=== PATIENT | male | born 1970 | race Caucasian/White ===

== ENCOUNTER 2016-11-14 11:11 | Emergency (ER) | payer OTHER ==
[~2016-11-14] VITALS: Ht 180.3 cm; Wt 79.5 kg
[2016-11-14 11:16] VITALS: Ht 180.3 cm; Wt 79.5 kg
[2016-11-14] MEDS ORDERED: HYDROmorphONE 1 MG/ML SYG IV STA ×2 (11:46→13:40)
[2016-11-14] MEDS ORDERED: SOD CHLORIDE 0.9% 1,000 ML IV STA (11:46)
[2016-11-14] MEDS ORDERED: ONDANSETRON 4 MG INJ IV STA ×2 (11:46→13:40)
[2016-11-14 12:05] LABS: ADD SCAN DIFF NO
[2016-11-14 12:11] LABS: BASOPHILS % 0.3 % (0.0-2.0); EOSINOPHILS # 0.1 10^3/ul (0.0-0.5); EOSINOPHILS % 0.6 % (0.0-7.0); HEMATOCRIT 46.1 % (42.0-52.0); HEMOGLOBIN 15.8 g/dl (14.0-18.0); LYMPHOCYTES # 1.3 10^3/ul (0.8-2.9); LYMPHOCYTES % 10.9 % (15.0-51.0); MEAN CORPUSCULAR HEMOGLOBIN 32.1 pg (29.0-33.0); MEAN CORPUSCULAR HGB CONC 34.3 g/dl (32.0-37.0); MEAN CORPUSCULAR VOLUME 93.7 fl (82.0-101.0); MEAN PLATELET VOLUME 9.8 fl (7.4-10.4); MONOCYTE # 0.9 10^3/ul (0.3-0.9); MONOCYTES % 7.7 % (0.0-11.0); NEUTROPHIL # 9.2 10^3/ul (1.6-7.5); NEUTROPHILS % 80.2 % (39.0-77.0); PLATELET COUNT 243 10^3/UL (140-415); RED BLOOD COUNT 4.92 10^6/ul (4.70-6.10); RED CELL DISTRIBUTION WIDTH 11.7 % (11.5-14.5); WHITE BLOOD COUNT 11.4 10^3/ul (4.8-10.8)
[2016-11-14 12:17] LABS: ADD UMIC YES; URINE BILIRUBIN (Dip) NEGATIVE (NEGATIVE); URINE BLOOD (Dip) 2+ (NEGATIVE); URINE COLOR LT. YELLOW (YELLOW); URINE GLUCOSE (Dip) NEGATIVE (NEGATIVE); URINE KETONES (Dip) NEGATIVE (NEGATIVE); URINE LEUKOCYTE ESTERASE (Dip) NEGATIVE (NEGATIVE); URINE NITRITE (Dip) NEGATIVE (NEGATIVE); URINE TOTAL PROTEIN (Dip) 1+ (NEGATIVE); URINE UROBILINOGEN (Dip) 0.2 E.U./dL (0.1-1.0)
[2016-11-14 12:18] LABS: ALBUMIN 4.5 g/dl (3.3-4.9)
[2016-11-14 12:19] LABS: POTASSIUM 3.7 mmol/L (3.5-5.1)
[2016-11-14 12:21] LABS: ALBUMIN/GLOBULIN RATIO 1.28; BILIRUBIN,INDIRECT 0.8 mg/dl (0-1.1); BILIRUBIN,TOTAL 0.8 mg/dl (0.2-1.3); CREATININE 0.99 mg/dl (0.61-1.24)
[2016-11-14 12:22] LABS: CALCIUM 9.5 mg/dl (8.4-10.2)
--- NOTE | 2016-11-14 12:33 | RADRPT ---
PROCEDURE: CT Abdomen and pelvis without contrast. CLINICAL INDICATION: Right flank pain radiating the pelvis TECHNIQUE: CT scan of the abdomen and pelvis without contrast was performed on a multidetector hig h-resolution CT scan. . Coronal and sagittal reformatted images were obtained from the axial [facility] e images. Standard CT scan of the abdomen pelvis without contrast protocols were performed. The total exam CTDI equals 12.39 mGy and the total exam DLP equals 699.32 mGy-cm. One or more of the following dose reduction techniques were used: - Automated exposure control. - Adjustment of the mA and/or kV according to patient size. Use of iterative reconstruction technique. COMPARISON: None FINDINGS: There is either an elongated bilobed of the distal right ureteral calculus or to abutting distal rig ht ureteral calculi with an overall dimension of approximately 0.5 x 0.2 cm. There is proximal to m oderate right hydroureter and hydronephrosis. Additional punctate 1-2 mm non-obstructing right mid renal calculus. Mild right perirenal stranding and fluid. There is a punctate non-obstructing 1-2 mm left mid renal calculus. No other left renal calcified calculi or hydronephrosis. There are no intra renal masses bilaterally. The urinary bladder is contracted but otherwise unremarkable. The prostate gland is unremarkable. No abdominal or pelvic free fluid, free air, abscesses or lymphadenopathy. The liver spleen pancrea s and adrenal glands are unremarkable. The gallbladder is unremarkable and there is no evidence christ iary ductal dilation. There is fluid and air distending the stomach which is otherwise unremarkable . The small large bowel are unremarkable. The appendix is unremarkable. There is sclerotic densit ies involving the right left femoral heads likely bone islands. There are no definite osteoblastic/ osteolytic lesions or acute osseous findings. There is degenerative changes lower thoracic and lumb ar spine. Lung bases are unremarkable. IMPRESSION: 1. 0.5 x 0.2 cm distal right ureteral calculus/calculi as described above resulting in moderate rig ht obstructive uropathy. 2. Additional nonobstructing punctate 1-2 mm bilateral renal calculi. No left obstructive uropathy . 3. Negative for intra-abdominal free air, free fluid, abscesses or lymphadenopathy. RPTAT:AAJJ Kathy Galo Physician Date Time Electronically viewed and signed by Kathy Galo Physician on 11/14/2016 12:32 /
[2016-11-14 12:48] LABS: URINE RBCS 0-2 /HPF (0)
[2016-11-14 12:49] LABS: BACTERIA,URINE FEW
[2016-11-14] MEDS ORDERED: HYDR-902 PO (13:53)
[2016-11-14] MEDS ORDERED: ONDA4TAB14 PO (13:53)
--- NOTE | 2016-11-14 13:59 | ERD ---
ER Documentation Chief Complaint Date/Time DATE: 11/14/16 TIME: 13:57 Chief Complaint RT FLANK PAIN STARTING THIS MORNING, HX KIDNEY STONES HPI This a 46-year-old male with a history of multiple renal stones complains of sharp pain in the right flank radiating to the right lower quadrant onset last night and worse today with nausea vomiting 2 no hematuria no fever no dysuria no diarrhea. He states he has had similar symptoms in the past and this feels exactly the same. Patient's last attack of renal stones was October 2016 the patient has Flomax already took one this morning ROS All systems reviewed and are negative except as per history of present illness. Medications Home Meds Active Scripts Ondansetron (Ondansetron Odt) 4 Mg Tab.rapdis, 4 MG PO Q6H Y for NAUSEA AND/OR VOMITING, #14 TAB Prov:ML KANGS [place]. DO 11/14/16 Hydrocodone/Acetaminophen ([place] 10-325 Tablet) 1 Each Tablet, 1 TAB PO Q6H Y for PAIN, #20 TAB Prov:VICK KANGSTABIGAILS A. DO 11/14/16 Allergies Allergies: Coded Allergies: No Known Allergy (Unverified , 11/14/16) PMhx/Soc Medical and Surgical Hx: pt denies Surgical Hx History of Surgery: No Anesthesia Reaction: No Hx Neurological Disorder: No Hx Respiratory Disorders: No Hx Cardiac Disorders: No Hx Psychiatric Problems: No Hx Miscellaneous Medical Probl: Yes (KIDNEY STONES ) Hx Alcohol Use: Yes (OCASSIONAL) Hx Substance Use: No Hx Tobacco Use: Yes Smoking Status: Current some day smoker FmHx Family History: No coronary disease Physical Exam Vitals Vital Signs Date Time Temp Pulse Resp B/P Pulse Ox O2 Delivery O2 Flow Rate FiO2 11/14/16 13:29 78 18 140/89 99 Room Air 11/14/16 11:16 97.8 72 20 162/92 100 Physical Exam Const: Well-developed, well-nourished Head: Atraumatic, normocephalic Eyes: Normal Conjunctiva, PERRLA, EOMI, normal sclera, no nystagmus ENT: Normal External Ears, Nose and Mouth, moist mucus membranes. Neck: Full range of motion. No meningismus, no lymphadenopathy. Resp: Clear to auscultation bilaterally, no wheezing, rhonchi, rales Cardio: Regular rate and rhythm, no murmurs, S1 S2 present Abd: Soft, non tender x 4, non distended. Normal bowel sounds, no guarding or rebound, no pulsitile abdominal masses or bruits Skin: No petechiae or rashes, no ecchymosis , no maculopapular rash Back: Mild right CVA tenderness Ext: No cyanosis, or edema, FROM x 4, normal inspection, neurovascularly intact x 4 Neur: Awake and alert, STR 5/5 x 4, sensation intact x 4, no focal findings, cerebellum intact Psych: Normal Mood and Affect Result Diagram: 11/14/16 1150 11/14/16 1150 Results 24 hrs Laboratory Tests Test 11/14/16 11:50 White Blood Count 11.410^3/ul Red Blood Count 4.9210^6/ul Hemoglobin 15.8g/dl Hematocrit 46.1% Mean Corpuscular Volume 93.7fl Mean Corpuscular Hemoglobin 32.1pg Mean Corpuscular Hemoglobin Concent 34.3g/dl Red Cell Distribution Width 11.7% Platelet Count 62976^3/UL Mean Platelet Volume 9.8fl Neutrophils % 80.2% Lymphocytes % 10.9% Monocytes % 7.7% Eosinophils % 0.6% Basophils % 0.3% Nucleated Red Blood Cells % 0.0/100WBC Neutrophils # 9.210^3/ul Lymphocytes # 1.310^3/ul Monocytes # 0.910^3/ul Eosinophils # 0.110^3/ul Basophils # 0.010^3/ul Nucleated Red Blood Cells # 0.010^3/ul Urine Color LT. YELLOW Urine Clarity SLIGHTLY CLOUDY Urine pH 8.5 Urine Specific [place] 1.010 Urine Ketones NEGATIVE Urine Nitrite NEGATIVE Urine Bilirubin NEGATIVE Urine Urobilinogen 0.2 E.U./dL Urine Leukocyte Esterase NEGATIVE Urine Microscopic RBC 0-2/HPF Urine Microscopic WBC 0-2/HPF Urine Amorphous Phosphates MODERATE Urine Bacteria FEW Urine Hemoglobin 2+ Urine Glucose NEGATIVE% Urine Total Protein 1+ Sodium Level 144mmol/L Potassium Level 3.7mmol/L Chloride Level 104mmol/L Carbon Dioxide Level 25mmol/L Anion Gap 19 Blood Urea Nitrogen 17mg/dl Creatinine 0.99mg/dl Glucose Level 123mg/dl Calcium Level 9.5mg/dl Total Bilirubin 0.8mg/dl Direct Bilirubin 0.00mg/dl Indirect Bilirubin 0.8mg/dl Aspartate Amino Transf (AST/SGOT) 38IU/L Alanine Aminotransferase (ALT/SGPT) 30IU/L Alkaline Phosphatase 54IU/L Total Protein 8.0g/dl Albumin 4.5g/dl Globulin 3.50g/dl Albumin/Globulin Ratio 1.28 Current Medications Medications (Trade) Dose Ordered Sig/Magy Route PRN Reason Start Time Stop Time Status Last Admin Dose Admin Sodium Chloride (NS) 1,000 ml @ 1,000 mls/hr Q1H STAT IV 11/14/16 11:46 11/14/16 12:45 DC 11/14/16 11:52 Hydromorphone HCl (Dilaudid) 1 mg ONCE STAT IV 11/14/16 11:46 11/14/16 11:48 DC 11/14/16 11:52 Ondansetron HCl (Zofran Inj) 4 mg ONCE STAT IV 11/14/16 11:46 11/14/16 11:48 DC 11/14/16 11:52 Hydromorphone HCl (Dilaudid) 1 mg ONCE STAT IV 11/14/16 13:40 11/14/16 13:44 DC 11/14/16 13:54 Ondansetron HCl (Zofran Inj) 4 mg ONCE STAT IV 11/14/16 13:40 11/14/16 13:44 DC 11/14/16 13:54 Procedures/MDM PROCEDURE: CT Abdomen and pelvis without contrast. CLINICAL INDICATION: Right flank pain radiating the pelvis TECHNIQUE: CT scan of the abdomen and pelvis without contrast was performed on a multidetector high-resolution CT scan. . Coronal and sagittal reformatted images were obtained from the axial source images. Standard CT scan of the abdomen pelvis without contrast protocols were performed. The total exam CTDI equals 12.39 mGy and the total exam DLP equals 699.32 mGy- cm. One or more of the following dose reduction techniques were used: - Automated exposure control. - Adjustment of the mA and/or kV according to patient size. Use of iterative reconstruction technique. COMPARISON: None FINDINGS: There is either an elongated bilobed of the distal right ureteral calculus or to abutting distal right ureteral calculi with an overall dimension of approximately 0.5 x 0.2 cm. There is proximal to moderate right hydroureter and hydronephrosis. Additional punctate 1-2 mm non-obstructing right mid renal calculus. Mild right perirenal stranding and fluid. There is a punctate non- obstructing 1-2 mm left mid renal calculus. No other left renal calcified calculi or hydronephrosis. There are no intra renal masses bilaterally. The urinary bladder is contracted but otherwise unremarkable. The prostate gland is unremarkable. No abdominal or pelvic free fluid, free air, abscesses or lymphadenopathy. The liver spleen pancreas and adrenal glands are unremarkable. The gallbladder is unremarkable and there is no evidence biliary ductal dilation. There is fluid and air distending the stomach which is otherwise unremarkable. The small large bowel are unremarkable. The appendix is unremarkable. There is sclerotic densities involving the right left femoral heads likely bone islands. There are no definite osteoblastic/osteolytic lesions or acute osseous findings. There is degenerative changes lower thoracic and lumbar spine. Lung bases are unremarkable. IMPRESSION: 1. 0.5 x 0.2 cm distal right ureteral calculus/calculi as described above resulting in moderate right obstructive uropathy. 2. Additional nonobstructing punctate 1-2 mm bilateral renal calculi. No left obstructive uropathy. 3. Negative for intra-abdominal free air, free fluid, abscesses or lymphadenopathy. RPTAT:AAJJ Physician Hailey Date Time Electronically viewed and signed by Physician Hailey on 11/14/2016 12:32 BM/ CC: DEUCE KANG DO Patient was given IV fluid and has pain control. We will discharge home on Zofran and [place]. The patient was given signs and symptoms to return Departure Diagnosis: Primary Impression: Ureterolithiasis Condition: Stable Patient Instructions: Kidney Stone W/ Colic DEUCE KANG DO Nov 14, 2016 13:59
[2016-11-14 14:50] VITALS: BP 132/67; PULSE 78; RESP 18; TEMP 98.2
== END 2016-11-14 14:56 | disposition home or self-care (01) ==
LOC: E/R 11:11
DX: N20.1 Calculus of ureter (principal); F17.210 Nicotine dependence, cigarettes, uncomplicated
CPT/HCPCS: 36415; 74176; 80053; 81001; 81003; 85025; 96361; 96374; 96375; 96376; 99285; J1170; J2405; J7030